=== PATIENT | female | born 1990 | race Caucasian/White ===

== ENCOUNTER 2016-11-23 21:40 | Emergency (ER) | payer OTHER ==
[~2016-11-23] VITALS: Ht 160 cm; Wt 55.8 kg
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
--- NOTE | 2016-11-23 22:02 | NUR ---
DR. MILLER AT BEDSIDE FOR EVAL
[2016-11-23] MEDS ORDERED: ONDANSETRON HCL/PF 4 MG/2 ML VIAL ONE (22:18)
[2016-11-23] MEDS ORDERED: IV NS 0.9% 250 ML IV ONE (22:22)
[2016-11-23] MEDS ORDERED: IOHEXOL-300 100 ML VIAL IV ONE (22:22)
--- NOTE | 2016-11-23 22:24 | NUR ---
PT TO CT.
[2016-11-23] MEDS ORDERED: MORPHINE SULFATE INJ 10 MG/ML DISP.SYRIN IV ONE (22:30)
[2016-11-23] MEDS ORDERED: ONDANSETRON HCL/PF 4 MG/2 ML VIAL IVP ONE (22:30)
[2016-11-23] MEDS ORDERED: IV NS 0.9% 1,000 ML BAG IV ONE (22:30)
[2016-11-23 22:35] LABS: BASOPHILS % (AUTO) 0.3 % (0.0-2.0); EOSINOPHILS # (AUTO) 0.1 /CMM (0.0-0.7); EOSINOPHILS % (AUTO) 0.9 % (0.0-6.0); HEMATOCRIT 42 % (33-45); HEMOGLOBIN 14.2 g/dL (11.5-14.8); LYMPHOCYTES # (AUTO) 2.1 /CMM (0.8-4.8); LYMPHOCYTES % (AUTO) 28.2 % (20.0-44.0); MEAN CORPUSCULAR HEMOGLOBIN 29 PG (26.0-33.0); MEAN CORPUSCULAR HGB CONC 34 g/dl (31.0-36.0); MEAN CORPUSCULAR VOLUME 85 fL (82-100); MONOCYTES # (AUTO) 0.4 /CMM (0.1-1.30); MONOCYTES % (AUTO) 5.7 % (2.0-12.0); NEUTROPHILS # (AUTO) 4.9 /CMM (1.8-8.9); NEUTROPHILS % (AUTO) 64.9 % (43.0-81.0); PLATELET COUNT (AUTO) 248 /CMM (150-450); RDW COEFFICIENT OF VARIATION 13.3 (11.5-15.0); RED BLOOD CELL COUNT(AUTO) 4.96 MIL/uL (4.0-5.2); WHITE BLOOD COUNT (AUTO) 7.6 K/uL (4.3-11.0)
[2016-11-23 22:48] LABS: INR 1.05 (0.87-1.13); PROTHROMBIN TIME 10.9 SECS (9.5-12.7)
[2016-11-23 22:49] LABS: ALBUMIN 4.6 g/dL (3.4-5.0); BILIRUBIN,DIRECT 0.2 mg/dL (0.0-0.2); BILIRUBIN,TOTAL 1.1 mg/dL (0.2-1.0); CALCIUM, SERUM 9.1 mg/dL (8.5-10.1); CREATININE 0.8 mg/dL (0.6-1.3); POTASSIUM 3.6 mmol/L (3.5-5.1)
[2016-11-23] MEDS ORDERED: MORPHINE SULFATE INJ 2 MG/ML DISP.SYRIN ONE (23:05)
[2016-11-23] MEDS ORDERED: MORPHINE SULFATE INJ 4 MG/ML DISP.SYRIN ONE (23:05)
--- NOTE | 2016-11-23 23:05 | NUR ---
PT RETURNED FROM CT.
--- NOTE | 2016-11-23 23:13 | NUR ---
[employer] AT BEDSIDE SPEAKING TO PT. BOYFRIEND AT BEDSIDE
--- NOTE | 2016-11-23 23:45 | NUR ---
DR. MILLER AT BEDSIDE SPEAKING TO PT REGARDING RESULTS
--- NOTE | 2016-11-23 23:59 | NUR ---
IV removed. Catheter intact and site benign. Pressure and 4x4 applied to site. No bleeding noted. Patient discharged to home in stable condition. Written and verbal after care instructions given. Patient verbalizes understanding of instruction. ambulatory with a steady gait. instructed not to drive. pt verbalize understanding. pt accompanied by family
[2016-11-24 00:02] VITALS: BP 116/68
== END 2016-11-24 00:05 | disposition home or self-care (01) ==
LOC: ER 21:49
DX: S16.1XXA Strain of muscle, fascia and tendon at neck level, initial encounter (principal); V49.49XA Driver injured in collision with other motor vehicles in traffic accident, initial encounter; Y93.89 Activity, other specified; Y92.89 Other specified places as the place of occurrence of the external cause; Y99.8 Other external cause status
CPT/HCPCS: 36415; 70450; 71260; 72125; 74160; 80048; 80076; 84703; 85025; 85730; 86850; 96361; 96374; 96375; 99285; A4606; J2270 ×2; J2405; J7030; J7050; Q9967; Z7610